=== PATIENT | male | born 1940 | race Caucasian/White ===

== ENCOUNTER → 2016-10-01 | Outpatient (REF) | payer MEDICARE ==
[~2016-10-01] MED LIST: CALC600T7 PO; COQ-200C PO; COUM10TA PO; COUM2.5T11 PO; FLOM5CAP PO; HUMA100I5 SC; LANTINJ4 SC; LEVO125T3 PO; PRAV20TA2 PO; PROS5TAB PO; TYLE325T5 PO; ULTR50TA PO; VICO5TAB16 PO; VITA100037 PO; VITA50TA43 PO; [UNRECOGNIZED DRUG - CODE] IV; revlimid PO
== END ==
LOC: M LAB REF 13:21
PROVIDERS: ATTEND Otolaryngology
DX: K13.79 Other lesions of oral mucosa (principal)

== ENCOUNTER → 2016-10-02 | Outpatient (REF) | payer MEDICARE | LOC: M SFHCCLAY 10:26 | PROVIDERS: ATTEND Urology | DX: R97.21 Rising PSA following treatment for malignant neoplasm of prostate (principal) ==

== ENCOUNTER → 2016-10-07 | Outpatient (REF) | payer MEDICARE | LOC: M SMT 12:53 | PROVIDERS: ATTEND Urology | DX: R97.20 Elevated prostate specific antigen [PSA] (principal) | CPT/HCPCS: 51798; 81001; 87086; G0463 ==

== ENCOUNTER → 2017-03-16 | Outpatient (REF) | payer MEDICARE ==
[~2017-03-16] MED LIST changes: -COUM2.5T11 PO; +COUM2.5T17 PO; -LEVO125T3 PO; +LEVO125T4 PO; -ULTR50TA PO; +ULTR50TA8 PO; -VITA100037 PO; +VITA100067 PO
== END ==
LOC: M SFHCCLAY 11:20
PROVIDERS: ATTEND Urology
DX: R97.20 Elevated prostate specific antigen [PSA] (principal)

== ENCOUNTER → 2017-03-26 | Outpatient (REF) | payer MEDICARE ==
[2017-03-26 18:34] LABS: CREATININE FOR GFR 1.66 MG/DL (0.70-1.30)
== END ==
LOC: M LAB REF 17:02
PROVIDERS: ATTEND Surgery
DX: K42.9 Umbilical hernia without obstruction or gangrene (principal)

== ENCOUNTER → 2017-03-31 | Outpatient (CLI) | payer MEDICARE ==
[~2017-03-31] MED LIST changes: +GASTROGRAFIN SOLUTION 30ML (Q9963) As Ordered ONE
--- NOTE | 2017-03-31 14:53 | REP ---
CT of the abdomen pelvis without IV or bowel contrast: Studies performed for umbilical hernia. Comparison is 01/05/2013. There is an umbilical hernia containing omental fat but no bowel. The peritoneal defect measures 3.4 cm transversely. The hernia sac measures 5.4 cm. This has increased in size from the comparison study. The visualized lung flores demonstrate dependent atelectasis but are otherwise unremarkable. The unenhanced hepatic parenchyma demonstrates a 17 mm focal hypodense lesion in the left lobe of the liver, likely an hepatic cyst, not significantly changed. The hepatic parenchyma is otherwise homogeneous. The gallbladder, pancreas and spleen are unremarkable. The adrenals and kidneys are unremarkable. Abdominal aorta is unremarkable. There is no bowel distension or obstruction. The mesentery is unremarkable. There is descending colon diverticulosis without diverticulitis. Pelvis: There is no ascites or adenopathy. 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 The bladder is nondistended. The pelvic bowel loops are unremarkable. Impression: There is an umbilical hernia containing omental fat but no bowel as described. There is no bowel distension or obstruction. There is an hepatic cyst, unchanged. There is descending colon diverticulosis without diverticulitis. 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 Signed by Kvng Varghese MD 03/31/2017 02:45 P
== END ==
LOC: M RAD 12:01
PROVIDERS: ATTEND Surgery
DX: K42.9 Umbilical hernia without obstruction or gangrene (principal)
CPT/HCPCS: 74176; Q9963

== ENCOUNTER → 2018-03-29 | Outpatient (REF) | payer MEDICARE ==
[2018-03-30 11:48] LABS: BASO # 0.1 10^3/uL (0.0-0.2); BASO % 1.5 % (0.0-1.0); EOS # 0.1 10^3/uL (0.0-0.50); HEMATOCRIT 41.1 % (42.0-52.0); HEMOGLOBIN 14.2 g/dl (13.5-17.5); LYMPH # 0.8 10^3/uL (1.5-4.5); LYMPH % 23.4 % (24.0-44.0); MEAN CORPUSCULAR HEMOGLOBIN 32.4 pg (27.0-33.0); MEAN CORPUSCULAR HGB CONC 34.5 g/dl (32.0-36.5); MEAN CORPUSCULAR VOLUME 93.8 fl (80.0-96.0); MONO # 0.3 10^3/uL (0.0-0.8); MONO % 9.6 % (0.0-5.0); NEUTROPHILS # 2.2 10^3/uL (1.8-7.7); NEUTROPHILS % 63.5 % (36.0-66.0); PLATELET COUNT, AUTOMATED 166 10^3/uL (150-450); RED BLOOD COUNT 4.38 10^6/uL (4.30-6.10); RED CELL DISTRIBUTION WIDTH 13.3 % (11.5-14.5); RETIC HEMOGLOBIN EQUIVALENT 36.1 pg (24-36); RETICULOCYTE # 84.5 10^9/L (17-77); RETICULOCYTE % 1.9 % (0.5-1.5); WHITE BLOOD COUNT 3.4 10^3/uL (4.0-10.0)
[2018-03-30 12:16] LABS: ALBUMIN 3.2 GM/DL (3.2-5.2); ALBUMIN/GLOBULIN RATIO 1.07 (1.00-1.93); ALKALINE PHOSPHATASE 43 U/L (45-117); ALT/SGPT 37 U/L (12-78); ANION GAP 7 MEQ/L (8-16); AST/SGOT 17 U/L (7-37); BILIRUBIN,TOTAL 1.2 MG/DL (0.2-1.0); BLOOD UREA NITROGEN 20 MG/DL (7-18); CALCIUM LEVEL 8.4 MG/DL (8.8-10.2); CARBON DIOXIDE LEVEL 28 MEQ/L (21-32); CHLORIDE LEVEL 106 MEQ/L (98-107); CREATININE FOR GFR 1.64 MG/DL (0.70-1.30); GLOMERULAR FILTRATION RATE 43.5 (>42); GLUCOSE, FASTING 222 MG/DL (70-100); POTASSIUM SERUM 4.6 MEQ/L (3.5-5.1); SODIUM LEVEL 141 MEQ/L (136-145); TOTAL PROTEIN 6.2 GM/DL (6.4-8.2)
[2018-03-30 13:16] LABS: IMMUNOGLOBULIN G 849 MG/DL (681-1648); IMMUNOGLOBULIN M 735 MG/DL (40-230)
[2018-03-31 12:51] LABS: ALPHA-1-GLOBULIN % 4.1 % (2.9-4.9); ALPHA-1-GLOBULINS 0.25 GM/DL (0.17-0.41); ALPHA-2-GLOBULINS 0.51 GM/DL (0.42-0.99); ALPHA-2-GLOBULINS % 8.2 % (7.1-11.8); BETA-1-GLOBULINS 0.41 GM/DL (0.28-0.60); BETA-1-GLOBULINS % 6.6 % (4.7-7.2)
[2018-03-31 12:52] LABS: BETA-2-GLOBULINS 0.72 GM/DL (0.19-0.55); BETA-2-GLOBULINS % 11.6 % (3.2-6.5); GAMMA GLOBULIN % 11.5 % (11.1-18.8); GAMMA GLOBULINS 0.71 GM/DL (0.65-1.58)
[2018-04-01 00:07] LABS: FREE KAPPA LIGHT CHAINS SERUM 32.6 mg/L (3.3-19.4); FREE LAMBDA LIGHT CHAINS SERUM 19.7 mg/L (5.7-26.3); KAPPA/LAMBDA RATIO SERUM 1.65 (0.26-1.65)
== END ==
LOC: M LABDRAWC 03-30 11:32
DX: C90.00 Multiple myeloma not having achieved remission (principal); D47.2 Monoclonal gammopathy
CPT/HCPCS: 84165

== ENCOUNTER → 2018-04-22 | Outpatient (REF) | payer MEDICARE ==
[2018-04-26 08:08] LABS: PSA TOTAL 1.2 ng/mL (0.0-4.0)
== END ==
LOC: M SFHCCLAY 13:33
DX: N40.1 Benign prostatic hyperplasia with lower urinary tract symptoms (principal)
CPT/HCPCS: 84154

== ENCOUNTER → 2018-07-11 | Outpatient (REF) | payer MEDICARE ==
[~2018-07-11] MED LIST changes: +FLOM0.4C39 PO; -FLOM5CAP PO; -GASTROGRAFIN SOLUTION 30ML (Q9963) As Ordered ONE
[2018-07-11 17:57] LABS: BASO # 0.1 10^3/uL (0.0-0.2); BASO % 1.1 % (0.0-1.0); EOS # 0.1 10^3/uL (0.0-0.50); EOS % 1.1 % (0.0-3.0); HEMATOCRIT 42.4 % (42.0-52.0); HEMOGLOBIN 14.7 g/dl (13.5-17.5); LYMPH # 0.7 10^3/uL (1.5-4.5); LYMPH % 16.1 % (24.0-44.0); MEAN CORPUSCULAR HGB CONC 34.7 g/dl (32.0-36.5); MEAN CORPUSCULAR VOLUME 92.2 fl (80.0-96.0); MONO # 0.8 10^3/uL (0.0-0.8); MONO % 16.3 % (0.0-5.0); NEUTROPHILS % 65.2 % (36.0-66.0); PLATELET COUNT, AUTOMATED 215 10^3/uL (150-450); WHITE BLOOD COUNT 4.6 10^3/uL (4.0-10.0)
[2018-07-11 18:27] LABS: ALBUMIN 3.6 GM/DL (3.2-5.2); ALT/SGPT 52 U/L (12-78); BLOOD UREA NITROGEN 27 MG/DL (7-18); CARBON DIOXIDE LEVEL 28 MEQ/L (21-32); CHLORIDE LEVEL 108 MEQ/L (98-107); CREATININE FOR GFR 1.57 MG/DL (0.70-1.30); GLOMERULAR FILTRATION RATE 45.6 (>42); GLUCOSE, FASTING 131 MG/DL (70-100); IMMUNOGLOBULIN A 90.1 MG/DL (70-400); IMMUNOGLOBULIN G 948 MG/DL (681-1648); POTASSIUM SERUM 4.9 MEQ/L (3.5-5.1); SODIUM LEVEL 141 MEQ/L (136-145); TOTAL PROTEIN 6.7 GM/DL (6.4-8.2)
[2018-07-12 11:34] LABS: ALBUMIN 3.81 GM/DL (3.29-5.55); ALBUMIN % 56.9 % (55.8-66.1); ALPHA-1-GLOBULIN % 4.3 % (2.9-4.9); ALPHA-2-GLOBULINS % 8.8 % (7.1-11.8); BETA-1-GLOBULINS % 6.2 % (4.7-7.2); BETA-2-GLOBULINS % 4.1 % (3.2-6.5); GAMMA GLOBULIN % 19.7 % (11.1-18.8)
[2018-07-12 11:35] LABS: ALPHA-1-GLOBULINS 0.29 GM/DL (0.17-0.41); ALPHA-2-GLOBULINS 0.59 GM/DL (0.42-0.99); BETA-1-GLOBULINS 0.42 GM/DL (0.28-0.60); BETA-2-GLOBULINS 0.27 GM/DL (0.19-0.55); GAMMA GLOBULINS 1.32 GM/DL (0.65-1.58)
[2018-07-12 11:51] LABS: IMMUNOTYPING SERUM IGM ABNORMAL (NORMAL); IMMUNOTYPING SERUM KAPPA ABNORMAL (NORMAL)
[2018-07-14 00:09] LABS: FREE LAMBDA LIGHT CHAINS SERUM 16.1 mg/L (5.7-26.3); KAPPA/LAMBDA RATIO SERUM 2.17 (0.26-1.65)
== END ==
LOC: M LABDRAWC 11:00
PROVIDERS: ATTEND Internal Medicine Hematology & Oncology
DX: C90.00 Multiple myeloma not having achieved remission (principal); D47.2 Monoclonal gammopathy

== ENCOUNTER → 2018-10-03 | Outpatient (REF) | payer MEDICARE ==
[~2018-10-03] MED LIST changes: -VICO5TAB16 PO; +VICO5TAB17 PO
[2018-10-03 17:46] LABS: HEMATOCRIT 43.9 % (42.0-52.0); HEMOGLOBIN 14.9 g/dl (13.5-17.5); MEAN CORPUSCULAR HEMOGLOBIN 32.3 pg (27.0-33.0); MEAN CORPUSCULAR HGB CONC 33.9 g/dl (32.0-36.5); PLATELET COUNT, AUTOMATED 207 10^3/uL (150-450); RED BLOOD COUNT 4.62 10^6/uL (4.30-6.10); WHITE BLOOD COUNT 4.7 10^3/uL (4.0-10.0)
[2018-10-03 17:50] LABS: ALBUMIN 3.4 GM/DL (3.2-5.2); ALT/SGPT 68 U/L (12-78); BILIRUBIN,TOTAL 1.2 MG/DL (0.2-1.0); BLOOD UREA NITROGEN 19 MG/DL (7-18); CARBON DIOXIDE LEVEL 28 MEQ/L (21-32); CHLORIDE LEVEL 108 MEQ/L (98-107); CREATININE FOR GFR 1.41 MG/DL (0.70-1.30); GLOMERULAR FILTRATION RATE 51.6 (>42); GLUCOSE, FASTING 76 MG/DL (70-100); POTASSIUM SERUM 4.9 MEQ/L (3.5-5.1); SODIUM LEVEL 141 MEQ/L (136-145); TOTAL PROTEIN 6.2 GM/DL (6.4-8.2)
[2018-10-05 10:58] LABS: ALBUMIN 3.46 GM/DL (3.29-5.55); ALBUMIN % 55.8 % (55.8-66.1); ALPHA-1-GLOBULIN % 3.9 % (2.9-4.9); ALPHA-1-GLOBULINS 0.24 GM/DL (0.17-0.41); ALPHA-2-GLOBULINS 0.56 GM/DL (0.42-0.99); ALPHA-2-GLOBULINS % 9.1 % (7.1-11.8); BETA-1-GLOBULINS 0.47 GM/DL (0.28-0.60); BETA-1-GLOBULINS % 7.5 % (4.7-7.2); BETA-2-GLOBULINS 0.19 GM/DL (0.19-0.55); BETA-2-GLOBULINS % 3.1 % (3.2-6.5); GAMMA GLOBULIN % 20.6 % (11.1-18.8); GAMMA GLOBULINS 1.28 GM/DL (0.65-1.58)
[2018-10-06 00:06] LABS: FREE KAPPA LIGHT CHAINS SERUM 31.2 mg/L (3.3-19.4); FREE LAMBDA LIGHT CHAINS SERUM 13.6 mg/L (5.7-26.3); KAPPA/LAMBDA RATIO SERUM 2.29 (0.26-1.65)
== END ==
LOC: M LABDRAWC 16:47
PROVIDERS: ATTEND Internal Medicine Hematology & Oncology
DX: C90.00 Multiple myeloma not having achieved remission (principal); D47.2 Monoclonal gammopathy

== ENCOUNTER → 2019-03-07 | Outpatient (REF) | payer MEDICARE ==
[2019-03-07 15:01] LABS: IMMUNOGLOBULIN A 84.2 MG/DL (70-400); IMMUNOGLOBULIN G 934 MG/DL (681-1648); TOTAL PROTEIN 6.4 GM/DL (6.4-8.2)
[2019-03-09 00:07] LABS: FREE KAPPA LIGHT CHAINS SERUM 33.9 mg/L (3.3-19.4); KAPPA/LAMBDA RATIO SERUM 2.26 (0.26-1.65)
[2019-03-09 11:30] LABS: ALBUMIN 3.69 GM/DL (3.29-5.55); ALBUMIN % 57.6 % (55.8-66.1); ALPHA-1-GLOBULINS 0.26 GM/DL (0.17-0.41); ALPHA-2-GLOBULINS % 8.6 % (7.1-11.8); BETA-2-GLOBULINS % 4.1 % (3.2-6.5); GAMMA GLOBULIN % 19.7 % (11.1-18.8)
[2019-03-09 11:31] LABS: ALPHA-2-GLOBULINS 0.55 GM/DL (0.42-0.99); BETA-1-GLOBULINS 0.38 GM/DL (0.28-0.60); BETA-2-GLOBULINS 0.26 GM/DL (0.19-0.55); GAMMA GLOBULINS 1.26 GM/DL (0.65-1.58)
== END ==
LOC: M LAB REF 13:12
PROVIDERS: ATTEND Family Medicine
DX: C90.00 Multiple myeloma not having achieved remission (principal); D47.2 Monoclonal gammopathy

== ENCOUNTER → 2019-05-01 | Outpatient (REF) | payer MEDICARE | LOC: M SFHCCLAY 16:04 | PROVIDERS: ATTEND Nurse Practitioner Women's Health | DX: Z12.5 Encounter for screening for malignant neoplasm of prostate (principal) | CPT/HCPCS: 36415; G0103 ==

== ENCOUNTER → 2019-09-01 | Outpatient (CLI) | payer MEDICARE | LOC: M LABSMTC 13:02 | PROVIDERS: ATTEND Family Medicine | DX: Z11.59 Encounter for screening for other viral diseases (principal); Z20.828 Contact with and (suspected) exposure to other viral communicable diseases ==

== ENCOUNTER → 2019-09-14 | Outpatient (REF) | payer MEDICARE ==
[2019-09-14 16:15] LABS: BASO % 0.9 % (0.0-1.0); EOS # 0.1 10^3/uL (0.0-0.5); EOS % 1.3 % (0.0-3.0); HEMOGLOBIN 14.4 g/dl (13.5-17.5); LYMPH # 1.1 10^3/uL (1.5-5.0); LYMPH % 22.6 % (24.0-44.0); MEAN CORPUSCULAR HEMOGLOBIN 32.8 pg (27.0-33.0); MEAN CORPUSCULAR HGB CONC 34.3 g/dl (32.0-36.5); MEAN CORPUSCULAR VOLUME 95.7 fl (80.0-96.0); MONO # 0.4 10^3/uL (0.0-0.8); MONO % 8.1 % (0.0-5.0); NEUTROPHILS # 3.1 10^3/uL (1.5-8.5); NEUTROPHILS % 66.9 % (36.0-66.0); PLATELET COUNT, AUTOMATED 204 10^3/uL (150-450); RED BLOOD COUNT 4.39 10^6/uL (4.30-6.10); WHITE BLOOD COUNT 4.7 10^3/uL (4.0-10.0)
[2019-09-14 16:41] LABS: ALBUMIN 3.3 GM/DL (3.2-5.2); ALT/SGPT 38 U/L (12-78); BILIRUBIN,TOTAL 1.2 MG/DL (0.2-1.0); BLOOD UREA NITROGEN 23 MG/DL (7-18); CALCIUM LEVEL 8.6 MG/DL (8.8-10.2); CARBON DIOXIDE LEVEL 29 MEQ/L (21-32); CHLORIDE LEVEL 108 MEQ/L (98-107); CREATININE FOR GFR 1.47 MG/DL (0.70-1.30); GLOMERULAR FILTRATION RATE 49.1 (>35); GLUCOSE, FASTING 138 MG/DL (70-100); POTASSIUM SERUM 4.6 MEQ/L (3.5-5.1); SODIUM LEVEL 139 MEQ/L (136-145); TOTAL PROTEIN 6.6 GM/DL (6.4-8.2)
== END ==
LOC: M LABDRAWC 15:51
PROVIDERS: ATTEND Internal Medicine Hematology & Oncology
DX: D47.2 Monoclonal gammopathy (principal); C90.00 Multiple myeloma not having achieved remission

== ENCOUNTER → 2020-01-15 | Outpatient (REF) | payer MEDICARE ==
[~2020-01-15] MED LIST changes: +CALC-212 PO; -CALC600T7 PO
[2020-03-19 08:12] LABS: C REACTIVE PROTEIN QUANTITATIV < 0.30 MG/DL (0.00-0.30); IMMUNOGLOBULIN A 86.9 MG/DL (70-400); IMMUNOGLOBULIN G 885 MG/DL (681-1648)
[2020-03-19 08:13] LABS: TOTAL PROTEIN 6.4 GM/DL (6.4-8.2)
== END ==
LOC: M LAB REF 09:48
PROVIDERS: ATTEND Family Medicine
DX: D47.2 Monoclonal gammopathy (principal); C90.00 Multiple myeloma not having achieved remission; Z96.642 Presence of left artificial hip joint

== ENCOUNTER → 2020-03-28 | Outpatient (REF) | payer MEDICARE ==
[2020-03-28 16:37] LABS: CREATININE FOR GFR 1.51 MG/DL (0.70-1.30); GLOMERULAR FILTRATION RATE 47.6 (>35)
== END ==
LOC: M LABDRAWC 15:54
PROVIDERS: ATTEND Internal Medicine Hematology & Oncology
DX: D47.2 Monoclonal gammopathy (principal); C90.00 Multiple myeloma not having achieved remission

== ENCOUNTER → 2020-04-30 | Outpatient (REF) | payer MEDICARE | LOC: M SFHCCLAY 10:08 | PROVIDERS: ATTEND Nurse Practitioner Women's Health | DX: Z12.5 Encounter for screening for malignant neoplasm of prostate (principal); R97.20 Elevated prostate specific antigen [PSA]; N40.1 Benign prostatic hyperplasia with lower urinary tract symptoms; R39.12 Poor urinary stream ==

== ENCOUNTER → 2020-05-14 | Outpatient (REF) | payer MEDICARE, OTHER ==
[2020-05-14 18:21] LABS: TOTAL PROTEIN 6.5 GM/DL (6.4-8.2)
[2020-05-14 19:37] LABS: IMMUNOGLOBULIN A 86.3 MG/DL (70-400); IMMUNOGLOBULIN G 966 MG/DL (681-1648)
[2020-05-16 11:49] LABS: ALBUMIN 3.59 GM/DL (3.29-5.55); ALBUMIN % 55.3 % (55.8-66.1); ALPHA-1-GLOBULIN % 4.1 % (2.9-4.9); ALPHA-1-GLOBULINS 0.27 GM/DL (0.17-0.41); ALPHA-2-GLOBULINS 0.57 GM/DL (0.42-0.99); ALPHA-2-GLOBULINS % 8.8 % (7.1-11.8); BETA-1-GLOBULINS 0.49 GM/DL (0.28-0.60); BETA-1-GLOBULINS % 7.5 % (4.7-7.2); BETA-2-GLOBULINS 0.73 GM/DL (0.19-0.55); BETA-2-GLOBULINS % 11.2 % (3.2-6.5); GAMMA GLOBULIN % 13.1 % (11.1-18.8); GAMMA GLOBULINS 0.85 GM/DL (0.65-1.58)
[2020-05-16 11:57] LABS: IMMUNOTYPING SERUM IGM ABNORMAL (NORMAL); IMMUNOTYPING SERUM KAPPA ABNORMAL (NORMAL)
[2020-05-16 18:08] LABS: FREE KAPPA LIGHT CHAINS SERUM 35.6 mg/L (3.3-19.4); FREE LAMBDA LIGHT CHAINS SERUM 16.4 mg/L (5.7-26.3); KAPPA/LAMBDA RATIO SERUM 2.17 (0.26-1.65)
== END ==
LOC: M LAB REF 16:21
PROVIDERS: ATTEND Family Medicine
DX: D47.2 Monoclonal gammopathy (principal); C90.00 Multiple myeloma not having achieved remission

== ENCOUNTER → 2020-09-17 | Outpatient (REF) | payer MEDICARE ==
[2020-09-17 14:07] LABS: IMMUNOGLOBULIN A 85.8 MG/DL (70-400); IMMUNOGLOBULIN G 933 MG/DL (681-1648); TOTAL PROTEIN 6.2 GM/DL (6.4-8.2)
[2020-09-18 18:09] LABS: FREE KAPPA LIGHT CHAINS SERUM 36.5 mg/L (3.3-19.4); FREE LAMBDA LIGHT CHAINS SERUM 18.5 mg/L (5.7-26.3); KAPPA/LAMBDA RATIO SERUM 1.97 (0.26-1.65)
[2020-09-19 13:23] LABS: ALBUMIN 3.65 GM/DL (3.29-5.55); ALBUMIN % 58.8 % (55.8-66.1); ALPHA-1-GLOBULIN % 3.7 % (2.9-4.9); ALPHA-1-GLOBULINS 0.23 GM/DL (0.17-0.41); ALPHA-2-GLOBULINS 0.52 GM/DL (0.42-0.99); ALPHA-2-GLOBULINS % 8.4 % (7.1-11.8); BETA-1-GLOBULINS 0.35 GM/DL (0.28-0.60); BETA-1-GLOBULINS % 5.7 % (4.7-7.2); BETA-2-GLOBULINS 0.71 GM/DL (0.19-0.55); BETA-2-GLOBULINS % 11.5 % (3.2-6.5)
[2020-09-19 13:24] LABS: GAMMA GLOBULIN % 11.9 % (11.1-18.8); GAMMA GLOBULINS 0.74 GM/DL (0.65-1.58)
[2020-09-19 14:05] LABS: IMMUNOTYPING SERUM IGM ABNORMAL (NORMAL); IMMUNOTYPING SERUM KAPPA ABNORMAL (NORMAL)
== END ==
LOC: M LAB REF 12:03
PROVIDERS: ATTEND Family Medicine
DX: D47.2 Monoclonal gammopathy (principal); C90.00 Multiple myeloma not having achieved remission

== ENCOUNTER → 2021-03-25 | Outpatient (REF) | payer MEDICARE ==
[2021-03-25 16:21] LABS: BASO % 0.9 % (0.0-1.0); EOS # 0.1 10^3/uL (0.0-0.5); EOS % 2.6 % (0.0-3.0); HEMATOCRIT 40.4 % (42.0-52.0); HEMOGLOBIN 13.8 g/dl (13.5-17.5); LYMPH # 0.8 10^3/uL (1.5-5.0); LYMPH % 23.5 % (24.0-44.0); MEAN CORPUSCULAR HEMOGLOBIN 32.2 pg (27.0-33.0); MEAN CORPUSCULAR HGB CONC 34.2 g/dl (32.0-36.5); MEAN CORPUSCULAR VOLUME 94.2 fl (80.0-96.0); MONO # 0.4 10^3/uL (0.0-0.8); MONO % 11.3 % (2.0-8.0); NEUTROPHILS # 2.1 10^3/uL (1.5-8.5); NEUTROPHILS % 61.4 % (36.0-66.0); PLATELET COUNT, AUTOMATED 152 10^3/uL (150-450); RED BLOOD COUNT 4.29 10^6/uL (4.30-6.10); WHITE BLOOD COUNT 3.4 10^3/uL (4.0-10.0)
[2021-03-25 17:29] LABS: ALT/SGPT 35 U/L (12-78); BILIRUBIN,TOTAL 1.3 MG/DL (0.2-1.0); BLOOD UREA NITROGEN 24 MG/DL (7-18); CALCIUM LEVEL 9.1 MG/DL (8.8-10.2); CARBON DIOXIDE LEVEL 28 MEQ/L (21-32); CHLORIDE LEVEL 105 MEQ/L (98-107); CREATININE FOR GFR 1.67 MG/DL (0.70-1.30); GLOMERULAR FILTRATION RATE 42.2 (>35); GLUCOSE, FASTING 300 MG/DL (70-100); IMMUNOGLOBULIN G 889 MG/DL (681-1648); SODIUM LEVEL 136 MEQ/L (136-145); TOTAL PROTEIN 6.1 GM/DL (6.4-8.2)
[2021-03-26 15:13] LABS: ALBUMIN % 55.7 % (55.8-66.1); ALPHA-1-GLOBULIN % 4.2 % (2.9-4.9); ALPHA-1-GLOBULINS 0.26 GM/DL (0.17-0.41); ALPHA-2-GLOBULINS 0.53 GM/DL (0.42-0.99); ALPHA-2-GLOBULINS % 8.7 % (7.1-11.8); BETA-1-GLOBULINS % 6.6 % (4.7-7.2); BETA-2-GLOBULINS 0.73 GM/DL (0.19-0.55); BETA-2-GLOBULINS % 11.9 % (3.2-6.5); GAMMA GLOBULIN % 12.9 % (11.1-18.8); GAMMA GLOBULINS 0.79 GM/DL (0.65-1.58)
[2021-03-27 17:08] LABS: FREE KAPPA LIGHT CHAINS SERUM 47.5 mg/L (3.3-19.4); KAPPA/LAMBDA RATIO SERUM 2.5 (0.26-1.65)
== END ==
LOC: M LABDRAWC 15:37
PROVIDERS: ATTEND Nurse Practitioner Adult Health
DX: D47.2 Monoclonal gammopathy (principal); C90.00 Multiple myeloma not having achieved remission

== ENCOUNTER → 2021-04-04 | Outpatient (CLI) | payer MEDICARE ==
[~2021-04-04] MED LIST changes: +PROHANCE 279.3MG/ML 15ML VIAL ONE; +PROHANCE 279.3MG/ML 5ML VIAL ONE
--- NOTE | 2021-04-05 21:54 | REPVR ---
PROCEDURE INFORMATION: Exam: MR Thoracic Spine Without and With Contrast Exam date and time: 04/04/2021 2:40 PM Age: 80 years old Clinical indication: Condition or disease; Other: Multiple myeloma TECHNIQUE: Imaging protocol: Multiplanar magnetic resonance images of the thoracic spine without and with contrast. Contrast material: PROHANCE; Contrast volume: 10 ml; Contrast route: INTRAVENOUS (IV); COMPARISON: MRI THORACIC SPINE WITHOUTWITH CONTRAST 04/02/2020 10:20 AM FINDINGS: Multifocal heterogeneous signal enhancing lesions throughout the visualized vertebral levels, most pronounced at the T6 level with extension into the left T6 pedicle. No significant canal narrowing in the thoracic spine. Thoracic vertebral body heights are maintained. Multilevel mild degenerative disc height loss. No cord compression. No abnormal cord signal. Thoracic kyphosis is preserved. Soft tissues are unremarkable. IMPRESSION: Multifocal heterogeneous signal enhancing lesions throughout the visualized vertebral levels, most pronounced at the T6 level with extension into the left T6 pedicle. Findings may reflect metastatic disease given provided history of multiple myeloma, although several of these lesions may also reflect vertebral body hemangiomas. Continued follow-up at the discretion of oncology. Please refer to recent noncontrast MRI thoracic spine for additional details. Electronically signed by: Atif Pinzon On 04/05/2021 21:53:53 PM
--- NOTE | 2021-04-05 21:57 | REPVR ---
PROCEDURE INFORMATION: Exam: MR Lumbar Spine Without and With Contrast Exam date and time: 04/04/2021 2:40 PM Age: 80 years old Clinical indication: Condition or disease; Other: Multiple myeloma TECHNIQUE: Imaging protocol: Multiplanar magnetic resonance images of the lumbar spine without and with intravenous contrast. Contrast material: PROHANCE; Contrast volume: 10 ml; Contrast route: INTRAVENOUS (IV); COMPARISON: MRI LUMBAR SPINE WITHOUTWITH CONTRAST 04/02/2020 9:51 AM FINDINGS: Diffuse heterogeneous marrow signal throughout visualized vertebral levels with several lesions associated with heterogeneous enhancement. 0.2 cm retrolisthesis of L2 on L3. Lumbar vertebral body heights are maintained. No cord compression. No abnormal cord signal. Conus medullaris terminates at the L1 level. Paravertebral soft tissues are unremarkable. L1-L2: Broad-based disc bulge and facet hypertrophy cause mild canal narrowing and [id number] bilateral foraminal narrowing. L2-L3: Broad-based disc bulge and facet hypertrophy cause mild canal narrowing and moderate bilateral foraminal narrowing. L3-L4: Broad-based disc bulge and facet hypertrophy cause mild canal narrowing with mild right and moderate left foraminal narrowing. L4-L5: Broad-based disc bulge and facet hypertrophy cause moderate canal narrowing with effacement of the bilateral lateral recesses. Mild left and severe right foraminal narrowing. L5-S1: No significant canal or foraminal narrowing. IMPRESSION: 1. Heterogeneously enhancing lesions throughout the visualized vertebral levels, concerning for metastatic disease given provided history of multiple myeloma. 2. Multilevel spondylotic changes of the lumbar spine, as above. Electronically signed by: Atif Pinzon On 04/05/2021 21:57:20 PM
== END ==
LOC: M PLAIMG 12:43
PROVIDERS: ATTEND Internal Medicine Hematology & Oncology
DX: R93.7 Abnormal findings on diagnostic imaging of other parts of musculoskeletal system (principal); C90.00 Multiple myeloma not having achieved remission; D47.2 Monoclonal gammopathy; M51.26 Other intervertebral disc displacement, lumbar region
CPT/HCPCS: 72157; 72158; A9576

== ENCOUNTER → 2021-08-13 | Outpatient (CLI) | payer MEDICARE ==
[~2021-08-13] MED LIST changes: -PROHANCE 279.3MG/ML 15ML VIAL ONE; -PROHANCE 279.3MG/ML 5ML VIAL ONE
== END ==
LOC: M WUC 13:22
PROVIDERS: ATTEND Family Medicine
DX: J20.9 Acute bronchitis, unspecified (principal)

== ENCOUNTER → 2021-09-08 | Outpatient (REF) | payer MEDICARE ==
[2021-09-08 13:06] LABS: IMMUNOGLOBULIN G 1320 MG/DL (681-1648); TOTAL PROTEIN 6.8 GM/DL (6.4-8.2)
[2021-09-09 10:12] LABS: ALBUMIN % 48.7 % (55.8-66.1); ALPHA-1-GLOBULIN % 4.9 % (2.9-4.9); ALPHA-1-GLOBULINS 0.33 GM/DL (0.17-0.41); ALPHA-2-GLOBULINS 0.73 GM/DL (0.42-0.99); ALPHA-2-GLOBULINS % 10.8 % (7.1-11.8); BETA-1-GLOBULINS % 7.4 % (4.7-7.2); BETA-2-GLOBULINS 0.77 GM/DL (0.19-0.55); BETA-2-GLOBULINS % 11.3 % (3.2-6.5)
[2021-09-09 10:13] LABS: GAMMA GLOBULIN % 16.9 % (11.1-18.8); GAMMA GLOBULINS 1.15 GM/DL (0.65-1.58)
[2021-09-09 10:22] LABS: IMMUNOTYPING SERUM IGG ABNORMAL (NORMAL); IMMUNOTYPING SERUM IGM ABNORMAL (NORMAL); IMMUNOTYPING SERUM KAPPA ABNORMAL (NORMAL); IMMUNOTYPING SERUM LAMBDA ABNORMAL (NORMAL)
[2021-09-09 18:08] LABS: FREE KAPPA LIGHT CHAINS SERUM 93.7 mg/L (3.3-19.4); FREE LAMBDA LIGHT CHAINS SERUM 60.5 mg/L (5.7-26.3); KAPPA/LAMBDA RATIO SERUM 1.55 (0.26-1.65)
== END ==
LOC: M LAB REF 12:00
PROVIDERS: ATTEND Family Medicine
DX: C90.00 Multiple myeloma not having achieved remission (principal)

== ENCOUNTER → 2021-09-22 | Outpatient (REF) | payer MEDICARE | LOC: M SFHCCLAY 10:37 | PROVIDERS: ATTEND Nurse Practitioner Women's Health | DX: Z12.5 Encounter for screening for malignant neoplasm of prostate (principal) ==

== ENCOUNTER → 2022-03-18 | Outpatient (REF) | payer MEDICARE ==
[2022-03-18 11:53] LABS: BASO # 0.1 10^3/uL (0.0-0.2); BASO % 1.2 % (0.0-1.0); EOS # 0.1 10^3/uL (0.0-0.5); EOS % 2.2 % (0.0-3.0); HEMATOCRIT 39.9 % (42.0-52.0); HEMOGLOBIN 13.5 g/dl (13.5-17.5); LYMPH # 0.8 10^3/uL (1.5-5.0); LYMPH % 20.4 % (24.0-44.0); MEAN CORPUSCULAR HEMOGLOBIN 32.6 pg (27.0-33.0); MEAN CORPUSCULAR HGB CONC 33.8 g/dl (32.0-36.5); MEAN CORPUSCULAR VOLUME 96.4 fl (80.0-96.0); MONO # 0.7 10^3/uL (0.0-0.8); NEUTROPHILS # 2.4 10^3/uL (1.5-8.5); PLATELET COUNT, AUTOMATED 173 10^3/uL (150-450); RED BLOOD COUNT 4.14 10^6/uL (4.30-6.10); WHITE BLOOD COUNT 4.1 10^3/uL (4.0-10.0)
[2022-03-18 13:08] LABS: ALBUMIN 3.2 GM/DL (3.2-5.2); ALT/SGPT 43 U/L (12-78); BILIRUBIN,TOTAL 1.4 MG/DL (0.2-1.0); BLOOD UREA NITROGEN 23 MG/DL (7-18); CALCIUM LEVEL 9.1 MG/DL (8.8-10.2); CARBON DIOXIDE LEVEL 28 MEQ/L (21-32); CHLORIDE LEVEL 107 MEQ/L (98-107); CREATININE FOR GFR 1.45 MG/DL (0.70-1.30); GLOMERULAR FILTRATION RATE 49.6 (>35); GLUCOSE, FASTING 114 MG/DL (70-100); IMMUNOGLOBULIN A 93.7 MG/DL (70-400); IMMUNOGLOBULIN G 1080 MG/DL (681-1648); POTASSIUM SERUM 4.3 MEQ/L (3.5-5.1); SODIUM LEVEL 140 MEQ/L (136-145); TOTAL PROTEIN 6.3 GM/DL (6.4-8.2)
[2022-03-19 18:16] LABS: FREE KAPPA LIGHT CHAINS SERUM 49.1 mg/L (3.3-19.4); FREE LAMBDA LIGHT CHAINS SERUM 19.8 mg/L (5.7-26.3); KAPPA/LAMBDA RATIO SERUM 2.48 (0.26-1.65)
[2022-03-20 12:06] LABS: ALBUMIN 3.57 GM/DL (3.29-5.55); ALBUMIN % 56.7 % (55.8-66.1); ALPHA-1-GLOBULIN % 3.8 % (2.9-4.9); ALPHA-1-GLOBULINS 0.24 GM/DL (0.17-0.41); ALPHA-2-GLOBULINS 0.55 GM/DL (0.42-0.99); ALPHA-2-GLOBULINS % 8.7 % (7.1-11.8); BETA-1-GLOBULINS 0.45 GM/DL (0.28-0.60); BETA-1-GLOBULINS % 7.2 % (4.7-7.2); BETA-2-GLOBULINS 0.62 GM/DL (0.19-0.55); BETA-2-GLOBULINS % 9.8 % (3.2-6.5); GAMMA GLOBULIN % 13.8 % (11.1-18.8); GAMMA GLOBULINS 0.87 GM/DL (0.65-1.58)
== END ==
LOC: M LABDRAWC 11:13
PROVIDERS: ATTEND Internal Medicine Hematology & Oncology
DX: C90.00 Multiple myeloma not having achieved remission (principal); D47.2 Monoclonal gammopathy; H90.3 Sensorineural hearing loss, bilateral

== ENCOUNTER → 2022-03-25 | Outpatient (CLI) | payer MEDICARE ==
[~2022-03-25] MED LIST changes: +PROHANCE 279.3MG/ML 15ML VIAL ONE
== END ==
LOC: M PLAIMG 10:04
PROVIDERS: ATTEND Internal Medicine Hematology & Oncology
DX: C90.00 Multiple myeloma not having achieved remission (principal); D47.2 Monoclonal gammopathy; M51.26 Other intervertebral disc displacement, lumbar region; M48.061 Spinal stenosis, lumbar region without neurogenic claudication
CPT/HCPCS: 72157; 72158; A9576

== ENCOUNTER → 2022-04-16 | Outpatient (CLI) | payer MEDICARE ==
[~2022-04-16] MED LIST changes: -PROHANCE 279.3MG/ML 15ML VIAL ONE; +PROHANCE 279.3MG/ML 5ML VIAL ONE
== END ==
LOC: M PLAIMG 10:26
PROVIDERS: ATTEND Otolaryngology
DX: H90.3 Sensorineural hearing loss, bilateral (principal)
CPT/HCPCS: 70553; A9576

== ENCOUNTER → 2022-09-17 | Outpatient (REF) | payer MEDICARE ==
[~2022-09-17] MED LIST changes: -PROHANCE 279.3MG/ML 5ML VIAL ONE
== END ==
LOC: M SFHCCLAY 14:39
PROVIDERS: ATTEND Physician Assistant
DX: Z12.5 Encounter for screening for malignant neoplasm of prostate (principal)

== ENCOUNTER → 2022-09-17 | Outpatient (REF) | payer MEDICARE ==
[2022-09-17 18:16] LABS: ALBUMIN 3.3 G/DL (3.2-5.2); BILIRUBIN,TOTAL 1.1 MG/DL (0.3-1.2); CALCIUM LEVEL 8.6 MG/DL (8.3-10.6); CREATININE FOR GFR 1.57 MG/DL (0.70-1.30); GLOMERULAR FILTRATION RATE 45.1 (>35); IMMUNOGLOBULIN A 106.3 MG/DL (40-350); POTASSIUM SERUM 4.6 MMOL/L (3.5-5.1); TOTAL PROTEIN 6.3 G/DL (5.7-8.2)
[2022-09-17 18:23] LABS: BASO # 0.1 10^3/uL (0.0-0.2); BASO % 1.1 % (0.0-1.0); EOS # 0.1 10^3/uL (0.0-0.5); EOS % 2.3 % (0.0-3.0); HEMATOCRIT 40.5 % (42.0-52.0); HEMOGLOBIN 13.7 g/dl (13.5-17.5); LYMPH # 1.2 10^3/uL (1.5-5.0); LYMPH % 24.7 % (24.0-44.0); MEAN CORPUSCULAR HGB CONC 33.8 g/dl (32.0-36.5); MEAN CORPUSCULAR VOLUME 94.6 fl (80.0-96.0); MONO # 0.7 10^3/uL (0.0-0.8); MONO % 15.5 % (2.0-8.0); NEUTROPHILS # 2.6 10^3/uL (1.5-8.5); NEUTROPHILS % 56.2 % (36.0-66.0); PLATELET COUNT, AUTOMATED 203 10^3/uL (150-450); RED BLOOD COUNT 4.28 10^6/uL (4.30-6.10); WHITE BLOOD COUNT 4.7 10^3/uL (4.0-10.0)
[2022-09-17 18:32] LABS: IMMUNOGLOBULIN M 535.2 MG/DL (50-300)
[2022-09-21 20:09] LABS: FREE KAPPA LIGHT CHAINS SERUM 57.1 mg/L (3.3-19.4); FREE LAMBDA LIGHT CHAINS SERUM 23.3 mg/L (5.7-26.3); KAPPA/LAMBDA RATIO SERUM 2.45 (0.26-1.65)
== END ==
LOC: M LABDRAWC 17:06
PROVIDERS: ATTEND Internal Medicine Hematology & Oncology
DX: D47.2 Monoclonal gammopathy (principal); C90.00 Multiple myeloma not having achieved remission; Z12.5 Encounter for screening for malignant neoplasm of prostate
CPT/HCPCS: 36415; 80053; 82784; 83521; 84155; 84165; 85025; G0103

== ENCOUNTER → 2022-12-29 | Outpatient (REF) | payer MEDICARE ==
[~2022-12-29] MED LIST changes: +FINA-48 PO; -PROS5TAB PO
[2022-12-29 18:45] LABS: EOS # 0.1 10^3/uL (0.0-0.5); EOS % 1.5 % (0.0-3.0); HEMATOCRIT 40.7 % (42.0-52.0); HEMOGLOBIN 13.7 g/dl (13.5-17.5); LYMPH # 0.9 10^3/uL (1.5-5.0); LYMPH % 21.4 % (24.0-44.0); MEAN CORPUSCULAR HEMOGLOBIN 32.2 pg (27.0-33.0); MEAN CORPUSCULAR HGB CONC 33.7 g/dl (32.0-36.5); MEAN CORPUSCULAR VOLUME 95.8 fl (80.0-96.0); MONO # 0.6 10^3/uL (0.0-0.8); MONO % 14.7 % (2.0-8.0); NEUTROPHILS # 2.5 10^3/uL (1.5-8.5); NEUTROPHILS % 61.2 % (36.0-66.0); PLATELET COUNT, AUTOMATED 188 10^3/uL (150-450); RED BLOOD COUNT 4.25 10^6/uL (4.30-6.10); WHITE BLOOD COUNT 4.1 10^3/uL (4.0-10.0)
[2022-12-29 19:01] LABS: IMMUNOGLOBULIN A 108.6 MG/DL (40-350)
[2022-12-29 19:02] LABS: ALBUMIN 3.1 G/DL (3.2-5.2); BILIRUBIN,TOTAL 1.1 MG/DL (0.3-1.2); CALCIUM LEVEL 8.7 MG/DL (8.3-10.6); CREATININE FOR GFR 1.51 MG/DL (0.70-1.30); GLOMERULAR FILTRATION RATE 47.2 (>35); POTASSIUM SERUM 4.8 MMOL/L (3.5-5.1); TOTAL PROTEIN 5.9 G/DL (5.7-8.2)
[2022-12-29 19:14] LABS: IMMUNOGLOBULIN M 518.4 MG/DL (50-300)
== END ==
LOC: M LABDRAWC 18:03
PROVIDERS: ATTEND Internal Medicine Hematology & Oncology
DX: C90.00 Multiple myeloma not having achieved remission (principal); D47.2 Monoclonal gammopathy

== ENCOUNTER 2023-02-24 11:28 | Inpatient (IN) | payer MEDICARE ==
[~2023-02-24] VITALS: Ht 180.3 cm; Wt 106.3 kg
[2023-02-24 13:05] LABS: HEMATOCRIT 40.4 % (42.0-52.0); HEMOGLOBIN 13.9 g/dl (13.5-17.5); MEAN CORPUSCULAR HEMOGLOBIN 32.6 pg (27.0-33.0); MEAN CORPUSCULAR HGB CONC 34.4 g/dl (32.0-36.5); MEAN CORPUSCULAR VOLUME 94.6 fl (80.0-96.0); PLATELET COUNT, AUTOMATED 177 10^3/uL (150-450); RED BLOOD COUNT 4.27 10^6/uL (4.30-6.10); WHITE BLOOD COUNT 2.8 10^3/uL (4.0-10.0)
[2023-02-24 13:27] LABS: CREATININE FOR GFR 1.7 MG/DL (0.70-1.30); GLOMERULAR FILTRATION RATE 41.2 (>35); POTASSIUM SERUM 4.8 MMOL/L (3.5-5.1)
[2023-02-24 13:35] LABS: RSV AMPLIFICATION NEGATIVE (NEGATIVE)
[2023-02-24] MEDS ORDERED: ONDANSETRON 4MG 2ML VIAL IV ONE (13:55)
[2023-02-24] MEDS ORDERED: NS 500 ML IV ONE (13:55)
[2023-02-24] MEDS ORDERED: ISOVUE-370 76% 100ML VIAL As Ordered ONE (14:01)
[2023-02-24 14:15] LABS: ALBUMIN 3.3 G/DL (3.2-5.2); BILIRUBIN,TOTAL 2.5 MG/DL (0.3-1.2); TOTAL PROTEIN 5.6 G/DL (5.7-8.2)
[2023-02-24 14:22] LABS: HEMOGLOBIN A1c 6.9 % (4.0-6.0)
[2023-02-24] MEDS ORDERED: LEVEMIR (INSULIN DETEMIR) 1 UNITS/0.01ML SC ONE (14:40)
[2023-02-24 14:55] LABS: CK-MB VALUE MASS 1.5 NG/ML (<3.6)
[2023-02-24 14:56] LABS: MB/CK RELATIVE INDEX 1.78 (< OR =4)
[2023-02-24] MEDS ORDERED: MED REC IN PROGRESS XX SCH (15:45)
[2023-02-24] MEDS ORDERED: ASPI81CH33 PO (16:15)
[2023-02-24] MEDS ORDERED: ELIQ5TAB PO (16:15)
[2023-02-24] MEDS ORDERED: OXYB10TA23 PO (16:15)
[2023-02-24] MEDS ORDERED: METF500T13 PO (16:15)
[2023-02-24] MEDS ORDERED: FAMO40TA3 PO (16:15)
[2023-02-24] MEDS ORDERED: REVL5CAP2 PO (16:49)
[2023-02-24] MEDS ORDERED: HumuLIN R (REGULAR) INSULIN (NovoLIN R) **100U/ML** PER UNIT IV STA ×2 (17:39→19:17)
[2023-02-24] MEDS ORDERED: GLUCAGON INJ 1MG VIAL SC PRN (17:40)
[2023-02-24] MEDS ORDERED: DEXTROSE 50% 50ML SYRINGE IV PRN (17:40)
[2023-02-24] MEDS ORDERED: GLUCOSE 4GM CHEW TABLET PO PRN (17:40)
[2023-02-24] MEDS ORDERED: ONDANSETRON 4MG 2ML VIAL IV PRN (17:40)
[2023-02-24 17:59] LABS: MAGNESIUM LEVEL 1.8 MG/DL (1.8-2.4)
[2023-02-24] MEDS ORDERED: INSULIN LISPRO (NovoLOG) PER UNIT SC SCH (18:00)
[2023-02-24] MEDS: NS 1,000 ML IV SCH (18:00)
[2023-02-24] MEDS ORDERED: HOME MED LIST COMPLETE! XX SCH (18:40)
[2023-02-24] MEDS ORDERED: REVLIMID 5 MG PO SCH ×2 (19:20→21:00)
[2023-02-24] MEDS: TAMSULOSIN 0.4 MG CAP PO SCH (21:25)
[2023-02-24] MEDS: PRAVASTATIN 20 MG TAB PO SCH (21:25)
[2023-02-24] MEDS: INSULIN LISPRO (NovoLOG) PER UNIT SC SCH (21:38)
[2023-02-24 21:58] VITALS: TEMP 97.9; O2SAT 94
[2023-02-24 22:30] VITALS: BP 124/60
[2023-02-25] MEDS: INSULIN LISPRO (NovoLOG) PER UNIT SC SCH ×6 (01:03→21:00)
[2023-02-25] MEDS: NS 1,000 ML IV SCH ×2 (03:40→14:05)
[2023-02-25] MEDS: LEVOTHYROXINE 125MCG TABLET (0.125MG) PO SCH (05:36)
[2023-02-25 06:00] VITALS: BP 131/66; TEMP 98.4; O2SAT 95
[2023-02-25 06:12] LABS: HEMATOCRIT 38.8 % (42.0-52.0); HEMOGLOBIN 12.9 g/dl (13.5-17.5); MEAN CORPUSCULAR HEMOGLOBIN 32.5 pg (27.0-33.0); MEAN CORPUSCULAR HGB CONC 33.2 g/dl (32.0-36.5); MEAN CORPUSCULAR VOLUME 97.7 fl (80.0-96.0); PLATELET COUNT, AUTOMATED 169 10^3/uL (150-450); RED BLOOD COUNT 3.97 10^6/uL (4.30-6.10); WHITE BLOOD COUNT 2.9 10^3/uL (4.0-10.0)
[2023-02-25 06:30] LABS: ALBUMIN 3.1 G/DL (3.2-5.2); BILIRUBIN,TOTAL 1.3 MG/DL (0.3-1.2); CALCIUM LEVEL 8.7 MG/DL (8.3-10.6); CREATININE FOR GFR 1.75 MG/DL (0.70-1.30); GLOMERULAR FILTRATION RATE 39.8 (>35); MAGNESIUM LEVEL 1.9 MG/DL (1.8-2.4); TOTAL PROTEIN 5.8 G/DL (5.7-8.2)
[2023-02-25 07:57] LABS: ATYPICAL LYMPH 3 % (0-5); BASOPHILS 2 % (0-1); EOSINOPHILS 3 % (0-3); LYMPHOCYTES 30 % (16-44); MONOCYTES 17 % (0-5); NEUTROPHILS 41 % (28-66); PLATELET ESTIMATE NORMAL (NORMAL)
[2023-02-25] MEDS ORDERED: BISACODYL 10MG SUPP PR ONE (08:30)
[2023-02-25] MEDS: PANTOPRAZOLE 40MG VIAL IV SCH (10:10)
[2023-02-25 14:00] VITALS: BP 133/65; TEMP 98.1; O2SAT 93
[2023-02-25 20:59] VITALS: BP 124/69; TEMP 99.5; O2SAT 92
[2023-02-25] MEDS: TAMSULOSIN 0.4 MG CAP PO SCH (21:03)
[2023-02-25] MEDS: LENALIDOMIDE 5 MG PO SCH (21:03)
[2023-02-25] MEDS: PRAVASTATIN 20 MG TAB PO SCH (21:03)
[2023-02-26] MEDS: NS 1,000 ML IV SCH ×3 (01:21→17:57)
[2023-02-26] MEDS: INSULIN LISPRO (NovoLOG) PER UNIT SC SCH ×6 (01:25→22:00)
[2023-02-26 06:00] VITALS: BP 125/67; TEMP 98.8; O2SAT 92
[2023-02-26] MEDS: LEVOTHYROXINE 125MCG TABLET (0.125MG) PO SCH (06:06)
[2023-02-26 06:49] LABS: HEMATOCRIT 37.2 % (42.0-52.0); HEMOGLOBIN 12.3 g/dl (13.5-17.5); MEAN CORPUSCULAR HEMOGLOBIN 32.5 pg (27.0-33.0); MEAN CORPUSCULAR HGB CONC 33.1 g/dl (32.0-36.5); MEAN CORPUSCULAR VOLUME 98.2 fl (80.0-96.0); PLATELET COUNT, AUTOMATED 141 10^3/uL (150-450); RED BLOOD COUNT 3.79 10^6/uL (4.30-6.10); WHITE BLOOD COUNT 3.1 10^3/uL (4.0-10.0)
[2023-02-26 07:23] LABS: ATYPICAL LYMPH 9 % (0-5); BASOPHILS 1 % (0-1); EOSINOPHILS 1 % (0-3); LYMPHOCYTES 9 % (16-44); MONOCYTES 14 % (0-5); NEUTROPHILS 63 % (28-66); PLATELET ESTIMATE NORMAL (NORMAL)
[2023-02-26 07:29] LABS: ALBUMIN 2.9 G/DL (3.2-5.2); BILIRUBIN,TOTAL 2.4 MG/DL (0.3-1.2); CALCIUM LEVEL 8.1 MG/DL (8.3-10.6); CREATININE FOR GFR 1.5 MG/DL (0.70-1.30); GLOMERULAR FILTRATION RATE 47.6 (>35); MAGNESIUM LEVEL 1.9 MG/DL (1.8-2.4); POTASSIUM SERUM 3.9 MMOL/L (3.5-5.1); TOTAL PROTEIN 5.7 G/DL (5.7-8.2)
[2023-02-26] MEDS: PANTOPRAZOLE 40MG VIAL IV SCH (09:33)
[2023-02-26] MEDS: APIXABAN 5 MG TAB (ELIQUIS) PO SCH ×2 (11:29→21:56)
[2023-02-26 21:50] VITALS: BP 132/59; TEMP 98.6; O2SAT 94
[2023-02-26] MEDS: TAMSULOSIN 0.4 MG CAP PO SCH (21:55)
[2023-02-26] MEDS: LENALIDOMIDE 5 MG PO SCH (21:56)
[2023-02-26] MEDS: PRAVASTATIN 20 MG TAB PO SCH (21:56)
[2023-02-27] MEDS: INSULIN LISPRO (NovoLOG) PER UNIT SC SCH ×6 (01:47→21:24)
[2023-02-27 05:16] VITALS: BP 133/58; TEMP 98.8; O2SAT 94
[2023-02-27] MEDS: LEVOTHYROXINE 125MCG TABLET (0.125MG) PO SCH (05:28)
[2023-02-27] MEDS: NS 1,000 ML IV SCH ×2 (05:31→15:34)
[2023-02-27 06:45] LABS: HEMATOCRIT 37.3 % (42.0-52.0); HEMOGLOBIN 12.4 g/dl (13.5-17.5); MEAN CORPUSCULAR HEMOGLOBIN 32.7 pg (27.0-33.0); MEAN CORPUSCULAR HGB CONC 33.2 g/dl (32.0-36.5); MEAN CORPUSCULAR VOLUME 98.4 fl (80.0-96.0); PLATELET COUNT, AUTOMATED 129 10^3/uL (150-450); RED BLOOD COUNT 3.79 10^6/uL (4.30-6.10); WHITE BLOOD COUNT 4.1 10^3/uL (4.0-10.0)
[2023-02-27 07:13] LABS: ALBUMIN 2.6 G/DL (3.2-5.2); BILIRUBIN,TOTAL 2.4 MG/DL (0.3-1.2); CALCIUM LEVEL 7.6 MG/DL (8.3-10.6); CREATININE FOR GFR 1.24 MG/DL (0.70-1.30); GLOMERULAR FILTRATION RATE 59.3 (>35); MAGNESIUM LEVEL 1.8 MG/DL (1.8-2.4); POTASSIUM SERUM 3.6 MMOL/L (3.5-5.1); TOTAL PROTEIN 5.5 G/DL (5.7-8.2)
[2023-02-27 07:30] LABS: ATYPICAL LYMPH 2 % (0-5); EOSINOPHILS 1 % (0-3); LYMPHOCYTES 13 % (16-44); MONOCYTES 9 % (0-5); NEUTROPHILS 72 % (28-66); PLATELET ESTIMATE DECREASED (NORMAL)
[2023-02-27] MEDS: APIXABAN 5 MG TAB (ELIQUIS) PO SCH (08:39)
[2023-02-27] MEDS: PANTOPRAZOLE 40MG VIAL IV SCH (08:39)
[2023-02-27] MEDS ORDERED: MAGNESIUM CITRATE 300ML BTL NG ONE (10:00)
[2023-02-27 14:00] VITALS: BP 131/59; TEMP 98.6; O2SAT 94
[2023-02-27] MEDS: LENALIDOMIDE 5 MG PO SCH (21:24)
[2023-02-27] MEDS: PRAVASTATIN 20 MG TAB PO SCH (21:25)
[2023-02-27] MEDS: TAMSULOSIN 0.4 MG CAP PO SCH (21:25)
[2023-02-27 22:00] VITALS: BP 133/61; TEMP 98.6; O2SAT 97
[2023-02-28] MEDS: INSULIN LISPRO (NovoLOG) PER UNIT SC SCH ×5 (01:28→17:28)
[2023-02-28] MEDS: NS 1,000 ML IV SCH ×3 (01:44→21:34)
[2023-02-28] MEDS: LEVOTHYROXINE 125MCG TABLET (0.125MG) PO SCH (05:31)
[2023-02-28 06:00] VITALS: BP 133/58; TEMP 98.1; O2SAT 95
[2023-02-28 06:40] LABS: HEMOGLOBIN 11.9 g/dl (13.5-17.5); MEAN CORPUSCULAR HEMOGLOBIN 32.4 pg (27.0-33.0); MEAN CORPUSCULAR HGB CONC 33.1 g/dl (32.0-36.5); MEAN CORPUSCULAR VOLUME 98.1 fl (80.0-96.0); PLATELET COUNT, AUTOMATED 143 10^3/uL (150-450); RED BLOOD COUNT 3.67 10^6/uL (4.30-6.10)
[2023-02-28 06:54] LABS: ALBUMIN 2.6 G/DL (3.2-5.2); BILIRUBIN,TOTAL 2.1 MG/DL (0.3-1.2); CALCIUM LEVEL 7.4 MG/DL (8.3-10.6); CREATININE FOR GFR 1.23 MG/DL (0.70-1.30); GLOMERULAR FILTRATION RATE 59.8 (>35); POTASSIUM SERUM 3.8 MMOL/L (3.5-5.1); TOTAL PROTEIN 5.3 G/DL (5.7-8.2)
[2023-02-28 07:07] LABS: ATYPICAL LYMPH 1 % (0-5); EOSINOPHILS 6 % (0-3); LYMPHOCYTES 13 % (16-44); MONOCYTES 8 % (0-5); NEUTROPHILS 72 % (28-66)
[2023-02-28 07:08] LABS: PLATELET ESTIMATE NORMAL (NORMAL)
[2023-02-28] MEDS: PANTOPRAZOLE 40MG VIAL IV SCH (09:01)
[2023-02-28] MEDS ORDERED: MAGNESIUM CITRATE 300ML BTL PO ONE (10:00)
[2023-02-28 14:00] VITALS: BP 136/57; TEMP 98.8; O2SAT 98
[2023-02-28] MEDS: PRAVASTATIN 20 MG TAB PO SCH (21:34)
[2023-02-28] MEDS: TAMSULOSIN 0.4 MG CAP PO SCH (21:34)
[2023-02-28 22:00] VITALS: BP 146/60; TEMP 98.1; O2SAT 98
[2023-03-01] VITALS (9 sets, daily range): BP systolic 117–141; BP diastolic 53–64; TEMP 97.9–98.1; O2SAT 94–98
[2023-03-01] MEDS: INSULIN LISPRO (NovoLOG) PER UNIT SC SCH ×5 (00:26→23:40)
[2023-03-01] MEDS: LEVOTHYROXINE 125MCG TABLET (0.125MG) PO SCH (05:35)
[2023-03-01 05:48] LABS: HEMATOCRIT 35.3 % (42.0-52.0); HEMOGLOBIN 11.8 g/dl (13.5-17.5); MEAN CORPUSCULAR HEMOGLOBIN 32.4 pg (27.0-33.0); MEAN CORPUSCULAR HGB CONC 33.4 g/dl (32.0-36.5); PLATELET COUNT, AUTOMATED 153 10^3/uL (150-450); RED BLOOD COUNT 3.64 10^6/uL (4.30-6.10); WHITE BLOOD COUNT 4.7 10^3/uL (4.0-10.0)
[2023-03-01 06:11] LABS: ALBUMIN 2.3 G/DL (3.2-5.2); ALKALINE PHOSPHATASE 39 U/L (46-116); ALT/SGPT 25 U/L (7.0-40); AST/SGOT 15 U/L (<34); BILIRUBIN,TOTAL 1.3 MG/DL (0.3-1.2); BLOOD UREA NITROGEN 14 MG/DL (9-23); CALCIUM LEVEL 7.3 MG/DL (8.3-10.6); CARBON DIOXIDE LEVEL 23 MMOL/L (20-31); CHLORIDE LEVEL 108 MMOL/L (98-107); CREATININE FOR GFR 1.09 MG/DL (0.70-1.30); GLOMERULAR FILTRATION RATE > 60.0 (>35); GLUCOSE, FASTING 125 MG/DL (74-106); MAGNESIUM LEVEL 2.2 MG/DL (1.8-2.4); POTASSIUM SERUM 3.8 MMOL/L (3.5-5.1); SODIUM LEVEL 144 MMOL/L (136-145); TOTAL PROTEIN 5.1 G/DL (5.7-8.2)
[2023-03-01 06:53] LABS: ATYPICAL LYMPH 5 % (0-5); EOSINOPHILS 1 % (0-3); LYMPHOCYTES 5 % (16-44); MONOCYTES 5 % (0-5); NEUTROPHILS 84 % (28-66)
[2023-03-01 06:54] LABS: PLATELET ESTIMATE NORMAL (NORMAL)
[2023-03-01] MEDS: NS 1,000 ML IV SCH ×2 (07:42→20:28)
[2023-03-01] MEDS: PANTOPRAZOLE 40MG VIAL IV SCH (09:48)
[2023-03-01] MEDS ORDERED: fentaNYL 100 MCG/2 ML INJECTION As Ordered ONE (16:04)
[2023-03-01] MEDS ORDERED: ROCURONIUM BROMIDE 50MG/5ML VIAL As Ordered ONE (16:04)
[2023-03-01] MEDS ORDERED: ONDANSETRON 4MG 2ML VIAL As Ordered ONE (16:04)
[2023-03-01] MEDS ORDERED: propofoL 200 MG/20 ML VIAL As Ordered ONE (16:04)
[2023-03-01] MEDS ORDERED: LIDOCAINE 2% 100MG/5ML SDV (FOR ANES.) As Ordered ONE (16:04)
[2023-03-01] MEDS ORDERED: SUGAMMADEX SODIUM 500 MG/5 ML VIAL (BRIDION) As Ordered ONE (16:04)
[2023-03-01] MEDS ORDERED: ceFAZolin 2 GM/D5W 50 ML IV BAG As Ordered ONE (17:26)
[2023-03-01] MEDS ORDERED: ACETAMINOPHEN 1000MG 100ML IV BAG As Ordered ONE (18:07)
[2023-03-01] MEDS ORDERED: ePHEDrine SULFATE 25 MG/5 ML(5MG/ML) SYRINGE As Ordered ONE (18:10)
[2023-03-01] MEDS ORDERED: KETOROLAC 60MG 2ML VIAL As Ordered ONE (18:12)
[2023-03-01] MEDS ORDERED: HYDROMORPHONE HCL 0.5 MG/ 0.5 ML SYRINGE IV PRN (18:20)
[2023-03-01] MEDS ORDERED: ONDANSETRON 4MG 2ML VIAL IV PRN (18:20)
[2023-03-01] MEDS ORDERED: fentaNYL 100 MCG/2 ML INJECTION IV PRN (18:20)
[2023-03-01] MEDS ORDERED: METOCLOPRAMIDE INJ 10MG/2ML VIAL IV PRN (18:20)
[2023-03-01] MEDS ORDERED: LR 1,000 ML IV SCH (18:20)
[2023-03-01] MEDS ORDERED: oxyCODONE 5MG TAB PO PRN (18:20)
[2023-03-01] MEDS ORDERED: KETOROLAC 30 MG/ML 1ML VIAL IV PRN (18:55)
[2023-03-01] MEDS: TAMSULOSIN 0.4 MG CAP PO SCH (20:28)
[2023-03-01] MEDS: PRAVASTATIN 20 MG TAB PO SCH (20:28)
[2023-03-01] MEDS: APIXABAN 5 MG TAB (ELIQUIS) PO SCH (21:27)
[2023-03-02] VITALS (7 sets, daily range): BP systolic 117–135; BP diastolic 48–59; TEMP 97.2–98.4; O2SAT 94–97
[2023-03-02] MEDS: INSULIN LISPRO (NovoLOG) PER UNIT SC SCH ×3 (05:51→18:09)
[2023-03-02] MEDS: NS 1,000 ML IV SCH (05:51)
[2023-03-02] MEDS: LEVOTHYROXINE 125MCG TABLET (0.125MG) PO SCH (05:51)
[2023-03-02 06:10] LABS: HEMATOCRIT 34.4 % (42.0-52.0); HEMOGLOBIN 11.2 g/dl (13.5-17.5); MEAN CORPUSCULAR HEMOGLOBIN 32.5 pg (27.0-33.0); MEAN CORPUSCULAR HGB CONC 32.6 g/dl (32.0-36.5); MEAN CORPUSCULAR VOLUME 99.7 fl (80.0-96.0); PLATELET COUNT, AUTOMATED 177 10^3/uL (150-450); RED BLOOD COUNT 3.45 10^6/uL (4.30-6.10); WHITE BLOOD COUNT 5.1 10^3/uL (4.0-10.0)
[2023-03-02 06:46] LABS: ALBUMIN 2.2 G/DL (3.2-5.2); BILIRUBIN,TOTAL 0.6 MG/DL (0.3-1.2); CALCIUM LEVEL 7.5 MG/DL (8.3-10.6); CREATININE FOR GFR 1.35 MG/DL (0.70-1.30); GLOMERULAR FILTRATION RATE 53.7 (>35); MAGNESIUM LEVEL 2.2 MG/DL (1.8-2.4); POTASSIUM SERUM 4.7 MMOL/L (3.5-5.1)
[2023-03-02 07:24] LABS: LYMPHOCYTES 4 % (16-44); MONOCYTES 1 % (0-5); NEUTROPHILS 95 % (28-66)
[2023-03-02 07:25] LABS: PLATELET CLUMPS MODERATE AMT
[2023-03-02] MEDS ORDERED: LR 1,000 ML IV SCH (08:15)
[2023-03-02] MEDS ORDERED: PIPERACILLIN/TAZOBACTAM SOD 3.375 GM in D5W MINI-BAG PLUS 50 ML IV SCH (09:00)
[2023-03-02] MEDS: LEVEMIR (INSULIN DETEMIR) 1 UNITS/0.01ML SC SCH ×2 (10:11→20:20)
[2023-03-02] MEDS: PANTOPRAZOLE 40MG VIAL IV SCH (10:12)
[2023-03-02] MEDS ORDERED: GLUCAGON INJ 1MG VIAL SC PRN (12:15)
[2023-03-02] MEDS ORDERED: GLUCOSE 4GM CHEW TABLET PO PRN (12:15)
[2023-03-02] MEDS ORDERED: DEXTROSE 50% 50ML SYRINGE IV PRN (12:15)
[2023-03-02] MEDS ORDERED: KETOROLAC 30 MG/ML 1ML VIAL IV PRN (17:20)
[2023-03-02] MEDS: PRAVASTATIN 20 MG TAB PO SCH (20:20)
[2023-03-02] MEDS: TAMSULOSIN 0.4 MG CAP PO SCH (20:20)
[2023-03-02] MEDS ORDERED: INSULIN LISPRO (NovoLOG) PER UNIT SC SCH (21:00)
[2023-03-03 05:25] VITALS: BP 120/63; TEMP 98.2; O2SAT 94
[2023-03-03] MEDS: LEVOTHYROXINE 125MCG TABLET (0.125MG) PO SCH (05:49)
[2023-03-03 06:11] LABS: HEMATOCRIT 30.6 % (42.0-52.0); HEMOGLOBIN 10.4 g/dl (13.5-17.5); MEAN CORPUSCULAR HEMOGLOBIN 32.3 pg (27.0-33.0); PLATELET COUNT, AUTOMATED 192 10^3/uL (150-450); RED BLOOD COUNT 3.22 10^6/uL (4.30-6.10); WHITE BLOOD COUNT 4.6 10^3/uL (4.0-10.0)
[2023-03-03 06:34] LABS: ALBUMIN 2.3 G/DL (3.2-5.2); BILIRUBIN,TOTAL 0.6 MG/DL (0.3-1.2); CALCIUM LEVEL 7.7 MG/DL (8.3-10.6); CREATININE FOR GFR 1.48 MG/DL (0.70-1.30); GLOMERULAR FILTRATION RATE 48.3 (>35); MAGNESIUM LEVEL 1.8 MG/DL (1.8-2.4); POTASSIUM SERUM 3.8 MMOL/L (3.5-5.1); TOTAL PROTEIN 4.9 G/DL (5.7-8.2)
[2023-03-03] MEDS ORDERED: LR 1,000 ML IV SCH (07:15)
[2023-03-03] MEDS ORDERED: LEVEMIR (INSULIN DETEMIR) 1 UNITS/0.01ML SC SCH (09:00)
[2023-03-03] MEDS ORDERED: ACET-910 PO (09:07)
[2023-03-03] MEDS: APIXABAN 5 MG TAB (ELIQUIS) PO SCH (10:26)
[2023-03-03] MEDS: PANTOPRAZOLE 40MG VIAL IV SCH (10:26)
[2023-03-03] MEDS: INSULIN LISPRO (NovoLOG) PER UNIT SC SCH ×2 (10:29→12:00)
[2023-03-04 06:48] LABS: PLATELET ESTIMATE INVALID (NORMAL)
== END 2023-03-03 12:58 | disposition home or self-care (01) | DRG 336 ==
LOC: M ED 11:28 → M ED INP 17:33 → ENRESERV 19:51 → M MSPAV 21:58
PROVIDERS: ADMIT Student in an Organized Health Care Education/Training Program; ATTEND Internal Medicine
PROC: 0DN84ZZ Release Small Intestine, Percutaneous Endoscopic Approach (ICD-10-PCS; principal; 2023-03-01 19:10)
DX: K56.50 Intestinal adhesions [bands], unspecified as to partial versus complete obstruction (principal); C80.0 Disseminated malignant neoplasm, unspecified; C90.00 Multiple myeloma not having achieved remission; N17.9 Acute kidney failure, unspecified; E11.22 Type 2 diabetes mellitus with diabetic chronic kidney disease; E03.9 Hypothyroidism, unspecified; I12.9 Hypertensive chronic kidney disease with stage 1 through stage 4 chronic kidney disease, or unspecified chronic kidney disease; K59.00 Constipation, unspecified; T45.1X5A Adverse effect of antineoplastic and immunosuppressive drugs, initial encounter; E11.65 Type 2 diabetes mellitus with hyperglycemia; K21.9 Gastro-esophageal reflux disease without esophagitis; D70.1 Agranulocytosis secondary to cancer chemotherapy; N40.0 Benign prostatic hyperplasia without lower urinary tract symptoms; E78.5 Hyperlipidemia, unspecified; I48.91 Unspecified atrial fibrillation; N18.9 Chronic kidney disease, unspecified; J45.909 Unspecified asthma, uncomplicated; K80.20 Calculus of gallbladder without cholecystitis without obstruction; N28.1 Cyst of kidney, acquired; Z20.822 Contact with and (suspected) exposure to COVID-19; Z86.73 Personal history of transient ischemic attack (TIA), and cerebral infarction without residual deficits; Z79.82 Long term (current) use of aspirin; Z79.01 Long term (current) use of anticoagulants; Z79.4 Long term (current) use of insulin; Z79.899 Other long term (current) drug therapy; Z79.890 Hormone replacement therapy

== ENCOUNTER → 2023-04-01 | Outpatient (REF) | payer MEDICARE ==
[~2023-04-01] MED LIST changes: +ACET-910 PO; +ASPI81CH33 PO; +ELIQ5TAB PO; +FAMO40TA3 PO; +METF500T13 PO; +OXYB10TA23 PO; +REVL5CAP2 PO
== END ==
LOC: M LAB REF 16:05
PROVIDERS: ATTEND Family Medicine
DX: I48.0 Paroxysmal atrial fibrillation (principal); I50.9 Heart failure, unspecified

== ENCOUNTER → 2023-05-03 | Outpatient (REF) | payer MEDICARE ==
[2023-05-03 18:13] LABS: BASO # 0.1 10^3/uL (0.0-0.2); BASO % 1.8 % (0.0-1.0); EOS # 0.1 10^3/uL (0.0-0.5); EOS % 2.7 % (0.0-3.0); HEMATOCRIT 38.4 % (42.0-52.0); HEMOGLOBIN 12.8 g/dl (13.5-17.5); LYMPH # 1.2 10^3/uL (1.5-5.0); MEAN CORPUSCULAR HEMOGLOBIN 32.7 pg (27.0-33.0); MEAN CORPUSCULAR HGB CONC 33.3 g/dl (32.0-36.5); MEAN CORPUSCULAR VOLUME 98.2 fl (80.0-96.0); MONO # 0.7 10^3/uL (0.0-0.8); MONO % 16.2 % (2.0-8.0); NEUTROPHILS # 2.4 10^3/uL (1.5-8.5); NEUTROPHILS % 53.1 % (36.0-66.0); PLATELET COUNT, AUTOMATED 204 10^3/uL (150-450); RED BLOOD COUNT 3.91 10^6/uL (4.30-6.10); WHITE BLOOD COUNT 4.5 10^3/uL (4.0-10.0)
[2023-05-03 18:31] LABS: IMMUNOGLOBULIN A 86.1 MG/DL (40-350)
[2023-05-03 18:32] LABS: ALBUMIN 3.3 G/DL (3.2-5.2); CALCIUM LEVEL 9.1 MG/DL (8.3-10.6); CREATININE FOR GFR 1.43 MG/DL (0.70-1.30); GLOMERULAR FILTRATION RATE 50.3 (>35); POTASSIUM SERUM 4.7 MMOL/L (3.5-5.1); TOTAL PROTEIN 6.4 G/DL (5.7-8.2)
[2023-05-03 18:49] LABS: IMMUNOGLOBULIN M 505.1 MG/DL (50-300)
== END ==
LOC: M LABDRAWC 17:02
PROVIDERS: ATTEND Internal Medicine Hematology & Oncology
DX: D47.2 Monoclonal gammopathy (principal); C90.00 Multiple myeloma not having achieved remission

== ENCOUNTER → 2023-05-31 | Outpatient (CLI) | payer MEDICARE | LOC: M CARPUL 08:10 | PROVIDERS: ATTEND Physician Assistant Medical | DX: I35.0 Nonrheumatic aortic (valve) stenosis (principal); I36.1 Nonrheumatic tricuspid (valve) insufficiency; I27.20 Pulmonary hypertension, unspecified; R60.9 Edema, unspecified ==

== ENCOUNTER → 2023-08-20 | Outpatient (REF) | payer MEDICARE ==
[2023-08-20 18:59] LABS: EOS # 0.1 10^3/uL (0.0-0.5); EOS % 1.6 % (0.0-3.0); HEMATOCRIT 38.5 % (42.0-52.0); HEMOGLOBIN 12.9 g/dl (13.5-17.5); LYMPH # 0.7 10^3/uL (1.5-5.0); LYMPH % 17.9 % (24.0-44.0); MEAN CORPUSCULAR HEMOGLOBIN 33.2 pg (27.0-33.0); MEAN CORPUSCULAR HGB CONC 33.5 g/dl (32.0-36.5); MONO # 0.4 10^3/uL (0.0-0.8); MONO % 9.8 % (2.0-8.0); NEUTROPHILS # 2.7 10^3/uL (1.5-8.5); NEUTROPHILS % 69.4 % (36.0-66.0); PLATELET COUNT, AUTOMATED 185 10^3/uL (150-450); RED BLOOD COUNT 3.89 10^6/uL (4.30-6.10); WHITE BLOOD COUNT 3.9 10^3/uL (4.0-10.0)
[2023-08-20 19:27] LABS: ALBUMIN 3.2 G/DL (3.2-5.2); BILIRUBIN,TOTAL 1.2 MG/DL (0.3-1.2); CALCIUM LEVEL 8.6 MG/DL (8.3-10.6); CREATININE FOR GFR 1.45 MG/DL (0.70-1.30); GLOMERULAR FILTRATION RATE 49.4 (>35); IMMUNOGLOBULIN A 90.4 MG/DL (40-350); POTASSIUM SERUM 5.3 MMOL/L (3.5-5.1); TOTAL PROTEIN 6.1 G/DL (5.7-8.2)
== END ==
LOC: M LABDRAWC 17:26
PROVIDERS: ATTEND Internal Medicine Hematology & Oncology
DX: D47.2 Monoclonal gammopathy (principal); C90.00 Multiple myeloma not having achieved remission

== ENCOUNTER → 2023-10-05 | Outpatient (REF) | payer MEDICARE | LOC: M SFHCCLAY 13:21 | PROVIDERS: ATTEND Physician Assistant | DX: R97.20 Elevated prostate specific antigen [PSA] (principal) ==

== ENCOUNTER → 2023-11-23 | Outpatient (REF) | payer MEDICARE ==
[2023-11-23 18:29] LABS: HEMATOCRIT 38.3 % (42.0-52.0); HEMOGLOBIN 12.9 g/dl (13.5-17.5); MEAN CORPUSCULAR HEMOGLOBIN 33.2 pg (27.0-33.0); MEAN CORPUSCULAR HGB CONC 33.7 g/dl (32.0-36.5); MEAN CORPUSCULAR VOLUME 98.5 fl (80.0-96.0); PLATELET COUNT, AUTOMATED 172 10^3/uL (150-450); RED BLOOD COUNT 3.89 10^6/uL (4.30-6.10); WHITE BLOOD COUNT 4.4 10^3/uL (4.0-10.0)
[2023-11-23 18:57] LABS: ALBUMIN 3.1 G/DL (3.2-5.2); BILIRUBIN,TOTAL 1.2 MG/DL (0.3-1.2); CALCIUM LEVEL 8.7 MG/DL (8.3-10.6); CREATININE FOR GFR 1.39 MG/DL (0.70-1.30); GLOMERULAR FILTRATION RATE 51.8 (>35); POTASSIUM SERUM 4.5 MMOL/L (3.5-5.1); TOTAL PROTEIN 6.1 G/DL (5.7-8.2)
[2023-11-23 18:59] LABS: BASOPHILS 1 % (0-1); LYMPHOCYTES 25 % (16-44); MONOCYTES 3 % (0-5); NEUTROPHILS 69 % (28-66)
[2023-11-23 19:00] LABS: PLATELET ESTIMATE NORMAL (NORMAL)
[2023-11-25 07:31] LABS: PROTEIN, TOTAL SO 6.2 g/dL (6.1-8.1)
[2023-11-25 11:12] LABS: FREE KAPPA LIGHT CHAINS SERUM 70.7 mg/L (3.3-19.4); FREE LAMBDA LIGHT CHAINS SERUM 23.9 mg/L (5.7-26.3); KAPPA/LAMBDA RATIO SERUM 2.96 (0.26-1.65)
[2023-11-26 05:52] LABS: ALBUMIN SO 3.5 g/dL (3.8-4.8); ALPHA 1 GLOBULINS SO 0.3 g/dL (0.2-0.3); ALPHA 2 GLOBULINS SO 0.5 g/dL (0.5-0.9); BETA 2 GLOBULIN SO 0.5 g/dL (0.2-0.5); BETA GLOBULIN SO 0.5 g/dL (0.4-0.6); GAMMA GLOBULINS SO 0.9 g/dL (0.8-1.7); SPEP IFE ABN PROTEIN BAND 1 0.4 g/dL (NONE DETECTED)
== END ==
LOC: M LABDRAWC 17:27
PROVIDERS: ATTEND Internal Medicine Hematology & Oncology
DX: D47.2 Monoclonal gammopathy (principal); C90.00 Multiple myeloma not having achieved remission

== ENCOUNTER → 2024-02-09 | Outpatient (REF) | payer MEDICARE ==
[2024-02-09 16:40] LABS: AMORPHOUS SEDIMENT SMALL (NEGATIVE); APPEARANCE, URINE TURBID (CLEAR); BACTERIA, URINE AUTO NEGATIVE (NEGATIVE); BILIRUBIN, URINE AUTO NEGATIVE (NEGATIVE); BLOOD, URINE BLOOD 1+ (NEGATIVE); COLOR, URINE AMBER (YELLOW); GLUCOSE, URINE (UA) AUTO 1+ mg/dL (NEGATIVE); KETONE, URINE AUTO NEGATIVE (NEGATIVE); LEUKOCYTE ESTERASE, URINE AUTO NEGATIVE (NEGATIVE); MUCUS, URINE SMALL (NEGATIVE); NITRITE, URINE AUTO NEGATIVE (NEGATIVE); PROTEIN, URINE AUTO 1+ mg/dL (NEGATIVE); RBC, URINE AUTO 2 /HPF (0-3); SPECIFIC GRAVITY URINE AUTO 1.023 (1.002-1.035); SQUAMOUS EPITHELIAL CELL UR AU 0 /HPF (0-6); UROBILINOGEN, URINE AUTO 0.2 mg/dL (0.0-2.0); WBC, URINE AUTO 1 /HPF (0-3)
== END ==
LOC: M LAB REF 16:03
PROVIDERS: ATTEND Family Medicine
DX: R31.9 Hematuria, unspecified (principal)

== ENCOUNTER → 2024-03-03 | Outpatient (REF) | payer MEDICARE ==
[2024-03-03 17:34] LABS: BASO % 0.8 % (0.0-1.0); EOS # 0.1 10^3/uL (0.0-0.5); EOS % 1.3 % (0.0-3.0); HEMATOCRIT 38.7 % (42.0-52.0); HEMOGLOBIN 13.1 g/dl (13.5-17.5); LYMPH # 0.8 10^3/uL (1.5-5.0); LYMPH % 20.5 % (24.0-44.0); MEAN CORPUSCULAR HEMOGLOBIN 32.8 pg (27.0-33.0); MEAN CORPUSCULAR HGB CONC 33.9 g/dl (32.0-36.5); MONO # 0.4 10^3/uL (0.0-0.8); MONO % 9.1 % (2.0-8.0); NEUTROPHILS # 2.7 10^3/uL (1.5-8.5); PLATELET COUNT, AUTOMATED 181 10^3/uL (150-450); RED BLOOD COUNT 3.99 10^6/uL (4.30-6.10)
[2024-03-03 18:09] LABS: IMMUNOGLOBULIN A 102.8 MG/DL (40-350)
[2024-03-03 18:10] LABS: ALKALINE PHOSPHATASE 44 U/L (46-116); ALT/SGPT 22 U/L (7.0-40); AST/SGOT 11 U/L (<34); BILIRUBIN,TOTAL 1.2 MG/DL (0.3-1.2); BLOOD UREA NITROGEN 19 MG/DL (9-23); CALCIUM LEVEL 8.5 MG/DL (8.3-10.6); CARBON DIOXIDE LEVEL 26 MMOL/L (20-31); CHLORIDE LEVEL 110 MMOL/L (98-107); CREATININE FOR GFR 1.33 MG/DL (0.70-1.30); GLOMERULAR FILTRATION RATE 54.5 (>35); GLUCOSE, FASTING 172 MG/DL (74-106); IMMUNOGLOBULIN G 977 MG/DL (650-1600); POTASSIUM SERUM 4.5 MMOL/L (3.5-5.1); SODIUM LEVEL 139 MMOL/L (136-145)
[2024-03-05 02:07] LABS: PROTEIN, TOTAL SO 5.8 g/dL (6.1-8.1)
[2024-03-06 13:28] LABS: FREE KAPPA LIGHT CHAINS SERUM 40.2 mg/L (3.3-19.4); FREE LAMBDA LIGHT CHAINS SERUM 19.3 mg/L (5.7-26.3); KAPPA/LAMBDA RATIO SERUM 2.08 (0.26-1.65)
[2024-03-06 14:12] LABS: ALBUMIN SO 3.2 g/dL (3.8-4.8); ALPHA 1 GLOBULINS SO 0.2 g/dL (0.2-0.3); ALPHA 2 GLOBULINS SO 0.5 g/dL (0.5-0.9); BETA 2 GLOBULIN SO 0.3 g/dL (0.2-0.5); BETA GLOBULIN SO 0.4 g/dL (0.4-0.6); GAMMA GLOBULINS SO 1.1 g/dL (0.8-1.7); SPEP IFE ABN PROTEIN BAND 1 0.3 g/dL (NONE DETECTED)
== END ==
LOC: M LABDRAWC 16:36
PROVIDERS: ATTEND Internal Medicine Hematology & Oncology
DX: C90.00 Multiple myeloma not having achieved remission (principal); D47.2 Monoclonal gammopathy

== ENCOUNTER → 2024-04-28 | Outpatient (REF) | payer MEDICARE | LOC: M LAB REF 10:17 | PROVIDERS: ATTEND Dentist | DX: S01.80XA Unspecified open wound of other part of head, initial encounter (principal) ==

== ENCOUNTER → 2024-05-02 | Outpatient (REF) | payer MEDICARE ==
[2024-05-02 11:51] LABS: BASO % 1.1 % (0.0-1.0); EOS % 1.1 % (0.0-3.0); HEMATOCRIT 37.7 % (42.0-52.0); HEMOGLOBIN 12.9 g/dl (13.5-17.5); LYMPH # 0.9 10^3/uL (1.5-5.0); LYMPH % 25.4 % (24.0-44.0); MEAN CORPUSCULAR HEMOGLOBIN 32.6 pg (27.0-33.0); MEAN CORPUSCULAR HGB CONC 34.2 g/dl (32.0-36.5); MEAN CORPUSCULAR VOLUME 95.2 fl (80.0-96.0); MONO # 0.5 10^3/uL (0.0-0.8); MONO % 14.9 % (2.0-8.0); NEUTROPHILS # 2.1 10^3/uL (1.5-8.5); NEUTROPHILS % 57.2 % (36.0-66.0); PLATELET COUNT, AUTOMATED 166 10^3/uL (150-450); RED BLOOD COUNT 3.96 10^6/uL (4.30-6.10); WHITE BLOOD COUNT 3.6 10^3/uL (4.0-10.0)
[2024-05-02 12:23] LABS: ALBUMIN 3.2 G/DL (3.2-5.2); ALKALINE PHOSPHATASE 49 U/L (40-129); ALT/SGPT 24 U/L (7.0-40); AST/SGOT 10 U/L (<34); BILIRUBIN,TOTAL 1.1 MG/DL (0.3-1.2); BLOOD UREA NITROGEN 29 MG/DL (9-23); CALCIUM LEVEL 9.2 MG/DL (8.3-10.6); CARBON DIOXIDE LEVEL 26 MMOL/L (20-31); CHLORIDE LEVEL 110 MMOL/L (98-107); CREATININE FOR GFR 1.36 MG/DL (0.70-1.30); GLOMERULAR FILTRATION RATE 53.1 (>35); GLUCOSE, FASTING 160 MG/DL (74-106); IMMUNOGLOBULIN A 118.8 MG/DL (40-350); IMMUNOGLOBULIN G 1202 MG/DL (650-1600); POTASSIUM SERUM 4.4 MMOL/L (3.5-5.1); SODIUM LEVEL 141 MMOL/L (136-145); TOTAL PROTEIN 6.7 G/DL (5.7-8.2)
[2024-05-03 08:57] LABS: T P ELECTROPHORESIS SO 6.3 g/dL (6.1-8.1)
[2024-05-03 12:22] LABS: FREE KAPPA LIGHT CHAINS SERUM 48.3 mg/L (3.3-19.4); KAPPA/LAMBDA RATIO SERUM 2.54 (0.26-1.65)
[2024-05-04 09:02] LABS: ALBUMIN SPEP 3.5 g/dL (3.8-4.8); ALPHA-1-GLOBULINS SO 0.2 g/dL (0.2-0.3); ALPHA-2-GLOBULINS SO 0.5 g/dL (0.5-0.9); BETA 2 GLOBULIN 0.3 g/dL (0.2-0.5); BETA-GLOBULIN SO 0.4 g/dL (0.4-0.6); GAMMA GLOBULINS SO 1.3 g/dL (0.8-1.7); SPEP ABN PROTEIN BAND 1 0.4 g/dL (NONE DETECTED)
== END ==
LOC: M LABDRAWC 11:16
PROVIDERS: ATTEND Internal Medicine Hematology & Oncology
DX: D47.2 Monoclonal gammopathy (principal); C90.00 Multiple myeloma not having achieved remission

== ENCOUNTER → 2024-06-15 | Outpatient (REF) | payer MEDICARE ==
[2024-06-15 14:49] LABS: IMMUNOGLOBULIN A 108.6 MG/DL (40-350)
[2024-06-15 15:31] LABS: IMMUNOGLOBULIN M 499.7 MG/DL (50-300)
[2024-06-16 08:08] LABS: PROTEIN, TOTAL SO 6.1 g/dL (6.1-8.1)
[2024-06-16 12:31] LABS: FREE KAPPA LIGHT CHAINS SERUM 57.3 mg/L (3.3-19.4); FREE LAMBDA LIGHT CHAINS SERUM 21.6 mg/L (5.7-26.3); KAPPA/LAMBDA RATIO SERUM 2.65 (0.26-1.65)
== END ==
LOC: M LAB REF 12:42
PROVIDERS: ATTEND Family Medicine
DX: C90.00 Multiple myeloma not having achieved remission (principal); D47.2 Monoclonal gammopathy

== ENCOUNTER → 2024-09-28 | Outpatient (REF) | payer MEDICARE ==
[2024-09-28 14:57] LABS: APPEARANCE, URINE CLEAR (CLEAR); BACTERIA, URINE AUTO NEGATIVE (NEGATIVE); BILIRUBIN, URINE AUTO NEGATIVE (NEGATIVE); BLOOD, URINE BLOOD 1+ (NEGATIVE); COLOR, URINE YELLOW (YELLOW); GLUCOSE, URINE (UA) AUTO 2+ mg/dL (NEGATIVE); KETONE, URINE AUTO NEGATIVE (NEGATIVE); LEUKOCYTE ESTERASE, URINE AUTO NEGATIVE (NEGATIVE); NITRITE, URINE AUTO NEGATIVE (NEGATIVE); PROTEIN, URINE AUTO 1+ mg/dL (NEGATIVE); RBC, URINE AUTO 3 /HPF (0-3); SPECIFIC GRAVITY URINE AUTO 1.023 (1.002-1.035); SQUAMOUS EPITHELIAL CELL UR AU 1 /HPF (0-6); UROBILINOGEN, URINE AUTO 0.2 mg/dL (0.0-2.0); WBC, URINE AUTO 0 /HPF (0-3)
== END ==
LOC: M SMT 12:48
PROVIDERS: ATTEND Physician Assistant
DX: Z87.898 Personal history of other specified conditions (principal)

== ENCOUNTER → 2024-10-17 | Outpatient (REF) | payer MEDICARE ==
[~2024-10-17] MED LIST changes: -FLOM0.4C39 PO; +TAMS-18 PO
== END ==
LOC: M LAB REF 12:12
PROVIDERS: ATTEND Family Medicine
DX: R30.0 Dysuria (principal); R41.3 Other amnesia

== ENCOUNTER → 2024-10-24 | Outpatient (REF) | payer MEDICARE | LOC: M LAB REF 11:17 | PROVIDERS: ATTEND Family Medicine | DX: R19.7 Diarrhea, unspecified (principal) ==